=== PATIENT | female | born 2000 | race Caucasian/White ===

== ENCOUNTER 2018-10-17 12:56 | Emergency (ER) | payer OTHER ==
[2018-10-17] MEDS ORDERED: NS 1,000 ML IV ONE (14:08)
--- NOTE | 2018-10-17 14:12 | EDPHY ---
H & P Stated Complaint: abd pain, ESTRELLA, confusion, dizzy x 30 min. Time Seen by Provider: 10/17/18 13:32 HPI/ROS: CHIEF COMPLAINT: Syncope HISTORY OF PRESENT ILLNESS: 18-year-old female presents after a syncopal episode. Onset generalized abdominal cramping this morning. She walked to the bathroom, felt dizzy and then sat on the toilet. She then had a large amount of diarrhea, followed by diaphoresis, tunnel vision and increased dizziness. She laid down on the floor for while and felt better. When she stood back up, she began to feel dizzy again. Her friend assisted her in becoming supine. She continues to feel slightly dizzy when she stands up. Associated with a mild headache. History of prior similar symptoms multiple times. She has seen a neurologist and had an MRI of the brain previously. No prior cardiac workup. REVIEW OF SYSTEMS: complete 10 point ROS reviewed and is negative except for the noted elements in the HPI - Personal History LMP (Females 10-55): Extended Cycle BCP/Inj Current Tetanus Diphtheria and Acellular Pertussis (TDAP): Yes - Medical/Surgical History Hx Asthma: No Hx Chronic Respiratory Disease: No Hx Diabetes: No Hx Cardiac Disease: No Hx Renal Disease: No Hx Cirrhosis: No Hx Alcoholism: No Hx HIV/AIDS: No Hx Splenectomy or Spleen Trauma: No Other PMH: endometriosis, pcos, migraines, vocal cord disfunction - Social History Smoking Status: Never smoked - Physical Exam Exam: General Appearance: Alert, pleasant Eyes: Pupils equal and round, no conjunctival pallor ENT, Mouth: Mucous membranes moist Neck: Normal inspection Respiratory: Lungs are clear to auscultation Cardiovascular: Regular rate and rhythm Gastrointestinal: Abdomen is soft and nontender Neurological: A&O, nonfocal, normal gait Skin: Warm and dry Extremities: Normal inspection Psychiatric: Mood and affect normal Constitutional: Initial Vital Signs Temperature (C) 36.8 C 10/17/18 13:06 Heart Rate 82 10/17/18 13:06 Respiratory Rate 16 10/17/18 13:06 Blood Pressure 111/72 10/17/18 13:06 O2 Sat (%) 99 10/17/18 13:06 O2 Delivery Mode Room Air Allergies/Adverse Reactions: No Known Allergies Allergy (Verified 10/17/18 14:12) Medical Decision Making - Diagnostics EKG Interpretation: EKG interpreted by me reveals normal sinus rhythm, rate 68, no ST or T segment changes. Interpretation: Normal EKG ED Course/Re-evaluation: This pt presents after a near syncopal episode. Clinical history strongly supports vasovagal episode. Prior eval for similar sx by neurologist, including MRI brain unremarkable. No prior cardiac eval. security monitor reveals NSR throughout. EKG NSR, without ischemic changes. Labs unremarkable. IV NS 1 liter given, pt ambulated with a steady gait after IVF, no dizziness. Pt encouraged to f/u cardiology, given multiple prior similar episodes. Differential Diagnosis: includes though not limited to dysrhythmia, ACS, hypoglycemia, electrolyte abnormality, dehydration, vertigo, neurologic causes - Data Points Laboratory Results: Laboratory Results 10/17/18 13:25 10/17/18 13:25 Medications Given: Discontinued Medications Sodium Chloride (Ns) 1,000 mls @ 0 mls/hr IV EDNOW ONE; Wide Open PRN Reason: Protocol Stop: 10/17/18 14:09 Last Admin: 10/17/18 14:11 Dose: 1,000 mls Departure - Departure Disposition: Home, Routine, Self-Care Clinical Impression: Syncope Qualifiers: Syncope type: vasovagal syncope Qualified Code(s): R55 - Syncope and collapse Condition: Good Instructions: Syncope (ED) Referrals: Mainor Rascon MD [Medical Doctor] - As per Instructions Stand Alone Forms: Statement of Treatment
[2018-10-17 14:16] LABS: PLATELET COUNT 308 10^3/uL (150-400)
[2018-10-17 15:04] VITALS: BP 106/73
--- NOTE | 2018-10-17 15:24 | CPEKG ---
Test Reason : OPEN Blood Pressure : / mmHG Vent. Rate : 068 BPM Atrial Rate : 064 BPM P-R Int : 128 ms QRS Dur : 100 ms QT Int : 414 ms P-R-T Axes : -04 083 033 degrees QTc Int : 441 ms Sinus rhythm Confirmed by Wanda Bains ([id number]) on 10/17/2018 3:23:49 PM Referred By: Wanda Bains Confirmed By:Wanda Bains
== END 2018-10-17 15:02 | disposition home or self-care (01) ==
DX: R55 Syncope and collapse (principal); E86.9 Volume depletion, unspecified

== ENCOUNTER 2018-10-23 20:27 | Emergency (ER) | payer OTHER ==
[2018-10-23] MEDS ORDERED: NS 1,000 ML IV ONE (20:58)
[2018-10-23] MEDS ORDERED: METOCLOPRAMIDE 10 MG/2 ML VIAL IVP ONE (22:13)
[2018-10-23] MEDS ORDERED: KETOROLAC 30 MG/1 ML SDV IVP ONE (22:13)
--- NOTE | 2018-10-23 23:15 | EDPHY ---
General Time Seen by Provider: 10/23/18 20:56 Narrative: CLINICAL IMPRESSION: Syncopal episode, migraine variant headache ASSESSMENT/PLAN: 18-year-old female with past medical history of migraines, followed by Neurology with reported normal lab work and MRIs recently presents to the emergency department after feeling lightheaded and dizzy at home and subsequently experiencing a syncopal episode. EKG is reassuring with no evidence of acute ST or T-wave abnormality, Brugada, or WPW. This was reviewed with Dr. Douglas. Patient has no complaints of chest pain or shortness of breath. Lab work reassuring. Vitals remained stable. She has a nonfocal neurological exam. She received IV analgesics with near complete resolution of headache and dizziness. She was seen and examined by Dr. Douglas as well. She has an appointment in 3 days with Cardiology and I also encouraged repeat evaluation with Neurology. We do not feel the patient requires emergent CT imaging tonight. She was advised to follow up with her neurologist this week as well. School note given to excuse from finals tomorrow. Warning signs for return to ED discussed with patient and parents and in DC DIFFERENTIAL DX: Differential diagnosis for headache includes but not limited to subarachnoid hemorrhage, migraine headache, migraine variant headache, tension headache and infectious causes such as meningitis, pharyngitis and sinusitis. ED PROCEDURES: See lab and/or imaging results below ED COURSE: 11:20 P.M. case discussed with Dr. Douglas who will also see the patient. After analgesics, patient reports headache is feeling much better. Vitals remained stable. CHIEF COMPLAINT: Syncopal episode, neck pain HPI: 18-year-old female with past medical history of migraine headaches, followed by Dr. Heath with Neurology, presents to the emergency department after she apparently had a syncopal episode at home while cooking dinner tonight. Patient was alone and no one witnessed the incident. She reports she was cooking, felt lightheaded as though she may pass out and then was on the ground. She hit her neck on the edge of a chair. She did not hit her head. She initially did not have a headache but reports to me that she does have a headache. She has been seeing Neurology for migraines which are described as sensations of dizziness, lightheadedness, vision changes. Since Monday of last week she has had more pronounced symptoms as stated above associated with an episode of inability to talk and arm and leg twitching. She has not been ill recently, no fever or chills. She has had normal MRI scans with her neurologist whom she last saw in August. She does not yet have an upcoming appointment. She has been taking sumatriptan but was instructed to only take this twice monthly and has already taken it once this month. She does not feel this is helping her symptoms significantly. She is also taking Cymbalta prophylactically. She does report that the dizziness seems to have started since starting Cymbalta. She was seen at the [facility] on Monday and started on a dexamethasone taper. She reports no nausea, vomiting, weakness or numbness to the arms or legs but states she was having trouble walking today after her syncopal episode. PAST MEDICAL HISTORY: Migraine See nurse/triage notes for additional history if applicable Pertinent Past Surgical History: None reported Family History: Family history of migraines Social History: Nonsmoker REVIEW OF SYSTEMS: All other systems negative Constitutional: No fever, no chills, appetite change. Cardiovascular: No chest pain, no palpitations. Respiratory: No cough, no shortness of breath. Gastrointestinal: No abdominal pain, no vomiting, diarrhea. Musculoskeletal: No back pain, joint swelling, joint pain, myalgias. Skin: No rashes, color change. Neurological: Positive for headache, dizziness, weakness. PHYSICAL EXAM: General Appearance: Alert, oriented, appropriate, cooperative, NAD, well hydrated, non-toxic appearing, VSS, no hypoxia. HEENT: TMs are clear bilaterally no perforation or FB, no injection, no evidence of serous or mucopurulent otitis. Oropharynx clear is no erythema or exudates, no tonsillar hypertrophy or asymmetry. Dentition without abnormality. Eyes: PERRLA, no acute vision change, nystagmus, swelling, discharge, pain. She does have mild photosensitivity. Conjunctiva pink, no pallor or injection Neck: Supple, nontender, no lymphadenopathy, midline and paravertebral pain to cervical spine, no obvious bruising, FROM, no meningismus. Respiratory: There are no retractions, lungs are clear to auscultation. No chest wall pain or rib pain to palpation. Cardiac: Regular rate and rhythm, no murmurs or gallops. Neurological: Alert and oriented x 3, CN 2-12 grossly intact, no limb ataxia, patellar DTRs 2+ bilaterally, normal sensation and strength Skin: Warm, dry, no rashes, no nodules on palpation. Musculoskeletal: Extremities are symmetrical, full range of motion, no tenderness, deformity, swelling, or erythema. Psychiatric: Patient is oriented X 3 MEDICAL DECISION MAKING: Secondary supervising physician at time of evaluation was Dr. Douglas who also saw and examined patient . Diagnosis: Migraine variant headache, syncopal episode. New, requires workup Summary: See Assessment and Plan for summary of ED visit Clinical lab tests: ordered / reviewed. Independent visualization of images, tracing, or specimens: Yes. Decision to obtain medical records or history from someone other than the patient: Patient's parents Review / Summarize previous medical records: Reviewed recent ED record Discussed patient with another provider: Dr. Douglas Patient Progress: Improved, stable for discharge. - Diagnostics Imaging Results: Imaging Impressions Cervical Spine X-Ray 10/23/18 22:13 Impression: 1. No definite cervical compression fracture or degenerative arthropathy. 2. If there is persistent pain or neurological deficit, consider additional MRI imaging if clinically indicated. - History Smoking Status: Never smoked - Objective Vital Signs: Initial Vital Signs Temperature (C) 37.2 C 10/23/18 20:30 Heart Rate 82 10/23/18 20:30 Respiratory Rate 18 10/23/18 20:30 Blood Pressure 124/86 H 10/23/18 20:30 O2 Sat (%) 96 10/23/18 20:30 O2 Delivery Mode Room Air Allergies/Adverse Reactions: No Known Allergies Allergy (Verified 10/23/18 20:29) Home Medications: Medication Instructions Recorded NK [No Known Home Meds] 10/23/18 Laboratory Results: Laboratory Results 10/23/18 20:45 10/23/18 10/23/18 10/23/18 21:50 21:50 20:45 Sodium 138 mEq/L mEq/L (135-145) Potassium 3.5 mEq/L mEq/L (3.5-5.2) Chloride 103 mEq/L mEq/L (97-110) Carbon Dioxide 23 mEq/l mEq/l (22-31) Anion Gap 12 mEq/L mEq/L (6-14) BUN 14 mg/dL mg/dL (7-23) Creatinine 0.7 mg/dL mg/dL (0.6-1.0) Estimated GFR > 60 Glucose 86 mg/dL mg/dL (70-100) Calcium 9.6 mg/dL mg/dL (8.5-10.4) Urine Color YELLOW Urine Appearance CLEAR Urine pH 5.0 (5.0-7.5) Ur Specific [place] 1.018 (1.002-1.030) Urine Protein NEGATIVE (NEGATIVE) Urine Ketones TRACE H (NEGATIVE) Urine Blood NEGATIVE (NEGATIVE) Urine Nitrate NEGATIVE (NEGATIVE) Urine Bilirubin NEGATIVE (NEGATIVE) Urine Urobilinogen NEGATIVE EU EU (0.2-1.0) Ur Leukocyte Esterase NEGATIVE (NEGATIVE) Urine Glucose NEGATIVE (NEGATIVE) Urine Test NEGATIVE Medications Given: Discontinued Medications Diphenhydramine HCl (Benadryl Injection) 50 mg IVP EDNOW ONE Stop: 10/23/18 22:14 Last Admin: 10/23/18 22:30 Dose: 50 mg Sodium Chloride (Ns) 1,000 mls @ 0 mls/hr IV EDNOW ONE; Wide Open PRN Reason: Protocol Stop: 10/23/18 20:59 Last Admin: 10/23/18 20:59 Dose: 1,000 mls Ketorolac Tromethamine (Toradol) 30 mg IVP EDNOW ONE Stop: 10/23/18 22:14 Last Admin: 10/23/18 22:28 Dose: 30 mg Metoclopramide HCl (Reglan Injection) 10 mg IVP EDNOW ONE Stop: 10/23/18 22:14 Last Admin: 10/23/18 22:29 Dose: 10 mg Departure - Departure Disposition: Home, Routine, Self-Care Clinical Impression: Migraine Qualifiers: Migraine type: unspecified Status migrainosus presence: without status migrainosus Intractability: not intractable Qualified Code(s): G43.909 - Migraine, unspecified, not intractable, without status migrainosus Condition: Fair Instructions: Migraine Headache (ED) Additional Instructions: DISCHARGE INSTRUCTIONS FROM YOUR DOCTOR Thank you for visiting our emergency department today. You were treated by a physician construction assistant today and your case was reviewed with our ED Attending physician. Please keep in mind that discharge from the emergency department does not mean that there is nothing wrong - it simply means that we have not identified an emergency condition that requires further evaluation or treatment in the hospital. You should always plan to follow up with primary care for re- evaluation of your condition in the next 2-3 days. If you have been referred to a specialist, please call as soon as possible (today or tomorrow) to schedule your follow up appointment at the appropriate time. EKG AND LAB WORK IN THE EMERGENCY DEPARTMENT TONIGHT ARE REASSURING. X-RAY OF THE NECK IS NORMAL WITH NO EVIDENCE OF FRACTURES. HE RECEIVED MEDICATIONS FOR HER HEADACHE WITH IMPROVEMENT IN SYMPTOMS. WE RECOMMEND FOLLOWING UP WITH HER NEUROLOGIST THIS WEEK, PLEASE CONTACT HIM AND LET THEM KNOW YOU WERE IN THE EMERGENCY DEPARTMENT. KEEP HER APPOINTMENT WITH CARDIOLOGY THIS WEEK. RETURN TO THE EMERGENCY DEPARTMENT IMMEDIATELY FOR SEVERE OR WORSENING HEADACHE, WORST HEADACHE OF HER LIFE, THUNDERCLAP OR SUDDEN ONSET HEADACHE, SEIZURE ACTIVITY, RECURRENT SYNCOPAL EPISODES, ALTERED MENTAL STATUS, OR ANY OTHER CONCERNS. People present with illnesses and injuries in different ways, and it is always possible that we have missed something. You may always return for re-evaluation if symptoms worsen or if they are not improving or if you develop new/different symptoms. Again, thank you for choosing our emergency department. We hope that you feel better. Referrals: HARSHAL RAMIREZ [Primary Care Provider] - 1-2 days without fail Stand Alone Forms: School Excuse
[2018-10-24 00:10] VITALS: BP 100/58
--- NOTE | 2018-11-02 07:23 | CPEKG ---
Test Reason : OPEN Blood Pressure : / mmHG Vent. Rate : 067 BPM Atrial Rate : 070 BPM P-R Int : 124 ms QRS Dur : 101 ms QT Int : 418 ms P-R-T Axes : -30 080 019 degrees QTc Int : 442 ms Sinus rhythm Confirmed by Fracisco Douglas ([id number]) on 11/02/2018 7:22:41 AM Referred By: PHYSICIAN ED Confirmed By:Fracisco Douglas
== END 2018-10-24 00:09 | disposition home or self-care (01) ==
DX: G43.909 Migraine, unspecified, not intractable, without status migrainosus (principal); E86.9 Volume depletion, unspecified
CPT/HCPCS: 96374; J1200; J1885; J2765

== ENCOUNTER 2018-10-25 13:19 | Observation (INO) | payer OTHER ==
[2018-10-25 13:52] LABS: PLATELET COUNT 299 10^3/uL (150-400)
[2018-10-25] MEDS ORDERED: D50W 25 GM/50 ML SYR IVP ONE (14:19)
[2018-10-25] MEDS ORDERED: NS 1,000 ML IV ONE (14:28)
--- NOTE | 2018-10-25 14:39 | EDPHY ---
H & P Time Seen by Provider: 10/25/18 13:55 HPI/ROS: HPI Passed out. Possible seizure. 18-year-old female by ambulance. This patient has been seen in our emergency department twice recently. Once on October 17 and most recently on October 23 for syncopal events. Her basic chemistry CBC negative during her evaluation previously. She was discharged to home. She is scheduled for cardiology follow-up tomorrow with [facility]. Today at approximately 1:00 p.m. She was eating lunch with her brother. She states that she started feeling a chest pain mid substernal chest which she describes as sharp and aching and similar to a pain which she has had in the past over the last couple of weeks with associated shortness of breath. She stood up and then reports that she passed out. Her brother who is with her states that he witnessed convulsive like activity. On my evaluation at this time she denies any chest pain currently, no shortness of breath. She does not have a headache. No neck pain. No loss of sensation or weakness in her extremities. ROS: Constitutional: No fever, no chills. No weakness. Eyes: No discharge. No changes in vision. ENT: No sore throat. No nasal congestion or rhinorrhea. Respiratory: No cough. No shortness of breath. Cardiac: No chest pain, no palpitations. Gastrointestinal: No abdominal pain, no vomiting, no diarrhea. Genitourinary: No hematuria. No dysuria or increased frequency with urination. Musculoskeletal: No back pain. No neck pain. No myalgias or arthralgias. Skin: No rashes. Neurological: No headache. No focal weakness or altered sensation. Past medical history: Recent visits to the emergency department for syncopal episodes as noted above, endometriosis, PCOS, migraine headaches, vocal cord dysfunction. Social history: Nonsmoker. Here with mother and father currently. No alcohol. Physical Exam: General Appearance: Alert, no distress. This patient is responding to questions appropriately and in full sentences. This patient appears well- hydrated and well-nourished. Head: Normocephalic atraumatic. Face: Facial bones are stable on palpation. Eyes: Pupils equal and round and reactive to light, no pallor or injection. No lid erythema or edema. ENT, Mouth: Mucous membranes moist. Dentition is intact. No malocclusion of the jaw. No tongue lacerations or abrasions. Pharynx is clear. The bilateral nasal canals are clear. No septal hematoma. Respiratory: There are no retractions, lungs are clear to auscultation with good air movement bilaterally. Chest wall is stable to AP and lateral palpation. Cardiovascular: Regular rate and rhythm. No murmur. Gastrointestinal: Abdomen is soft and nontender, no masses, bowel sounds normal. Neurological: Motor sensory function is intact. Cranial nerves are normal. Cerebellar function intact. Skin: Warm and dry, no rashes. No lacerations, abrasions or contusions. Musculoskeletal: Neck is supple and nontender. The trachea is midline. No midline cervical, thoracic, lumbar or sacral tenderness on palpation. No flank tenderness on palpation. Extremities are symmetrical, full range of motion. All joints in the bilateral upper and bilateral lower extremities range without pain or impingement. No tenderness on palpation of the long bones in the bilateral upper and bilateral lower extremities. Psychiatric: No agitation. No depression. Database: EKG: EKG time is 1:42 p.m.; EKG shows a narrow complex normal sinus rhythm with a ventricular rate of 70. The MO, QRS, QT intervals are within normal limits. There are no ST-T wave changes indicative of ischemic or injury pattern. No evidence of right heart strain. No evidence of WPW, Brugada syndrome, hypertrophic cardiomyopathy. Interpreted by me. Imaging: Procedures: Emergency department course: Triage vital signs reviewed and are normal. IV was placed. She was started on IV normal saline with 500 cc to 1 L to be given over the next hour. Basic metabolic panel indicated a serum glucose of 53. She was given an amp of D50. She will be given some juice and crackers. I do not believe she had a seizure. She has no tongue lacerations or contusions. She is not acidotic. 3:40 p.m., the patient was re-evaluated, she is resting comfortably at this time. Her vital signs have remained stable while in the emergency department. Repeat neurologic Assessment is nonfocal. Her workup has been reassuring. Results of her emergency department workup have been discussed with her and her parents. Plan for admission reviewed. All of their questions were answered. Hospitalist paged. 3:45 p.m., spoke with on-call hospitalist Dr. Danya Siu. Case discussed in detail. She will see this patient in the emergency department now. She accepts this patient for admission to telemetry. She will obtain an echocardiogram and cardiology consultation. The patient's remaining emergency department course under my care has been uneventful. The patient was admitted in stable condition to telemetry. Differential Diagnosis: The differential diagnosis on this patient includes but is not limited to vasovagal syncope, arrhythmia. Pulmonary embolism, seizure, acute coronary syndrome, CVA unlikely. This represents a partial list of diagnoses considered. These considerations are based on history, physical exam, past history, reassessment and diagnostic testing. Smoking Status: Never smoked Constitutional: Initial Vital Signs Temperature (C) 37.1 C 10/25/18 13:24 Heart Rate 70 10/25/18 13:24 Respiratory Rate 16 10/25/18 13:24 Blood Pressure 123/84 H 10/25/18 13:24 O2 Sat (%) 100 10/25/18 13:24 O2 Delivery Mode Room Air Allergies/Adverse Reactions: No Known Allergies Allergy (Verified 10/25/18 13:23) Home Medications: Medication Instructions Recorded Nilembalta 10/25/18 Medical Decision Making - Data Points Laboratory Results: Laboratory Results 10/25/18 13:35 10/25/18 13:35 10/25/18 10/25/18 10/25/18 14:43 13:35 13:35 WBC 8.88 10^3/uL 10^3/uL (3.80-9.50) RBC 4.57 10^6/uL 10^6/uL (4.18-5.33) Hgb 13.7 g/dL g/dL (12.6-16.3) Hct 39.8 % % (38.0-47.0) MCV 87.1 fL fL (81.5-99.8) MCH 30.0 pg pg (27.9-34.1) MCHC 34.4 g/dL g/dL (32.4-36.7) RDW 12.7 % % (11.5-15.2) Plt Count 299 10^3/uL 10^3/uL (150-400) MPV 9.4 fL fL (8.7-11.7) Neut % (Auto) 68.6 % % (39.3-74.2) Lymph % (Auto) 23.8 % % (15.0-45.0) [place] % (Auto) 6.5 % % (4.5-13.0) Eos % (Auto) 0.7 % % (0.6-7.6) Baso % (Auto) 0.2 % L % (0.3-1.7) Nucleat RBC Rel Count 0.0 % % (0.0-0.2) Absolute Neuts (auto) 6.09 10^3/uL 10^3/uL (1.70-6.50) Absolute Lymphs (auto) 2.11 10^3/uL 10^3/uL (1.00-3.00) Absolute Monos (auto) 0.58 10^3/uL 10^3/uL (0.30-0.80) Absolute Eos (auto) 0.06 10^3/uL 10^3/uL (0.03-0.40) Absolute Basos (auto) 0.02 10^3/uL 10^3/uL (0.02-0.10) Absolute Nucleated RBC 0.00 10^3/uL 10^3/uL (0-0.01) Immature Gran % 0.2 % % (0.0-1.1) Immature Gran # 0.02 10^3/uL 10^3/uL (0.00-0.10) D-Dimer Sodium 141 mEq/L mEq/L (135-145) Potassium 3.5 mEq/L mEq/L (3.5-5.2) Chloride 106 mEq/L mEq/L (97-110) Carbon Dioxide 24 mEq/l mEq/l (22-31) Anion Gap 11 mEq/L mEq/L (6-14) BUN 10 mg/dL mg/dL (7-23) Creatinine 0.8 mg/dL mg/dL (0.6-1.0) Estimated GFR > 60 Glucose 53 mg/dL L mg/dL (70-100) Calcium 9.7 mg/dL mg/dL (8.5-10.4) POC Troponin I 0.00 ng/mL ng/mL (0.00-0.08) Beta HCG, Qual 10/25/18 10/25/18 13:33 11:45 WBC RBC Hgb Hct MCV MCH MCHC RDW Plt Count MPV Neut % (Auto) Lymph % (Auto) [place] % (Auto) Eos % (Auto) Baso % (Auto) Nucleat RBC Rel Count Absolute Neuts (auto) Absolute Lymphs (auto) Absolute Monos (auto) Absolute Eos (auto) Absolute Basos (auto) Absolute Nucleated RBC Immature Gran % Immature Gran # D-Dimer 0.27 ug/mLFEU ug/mLFEU (0.00-0.50) Sodium Potassium Chloride Carbon Dioxide Anion Gap BUN Creatinine Estimated GFR Glucose Calcium POC Troponin I Beta HCG, Qual NEGATIVE Medications Given: Discontinued Medications Dextrose (Dextrose 50% Syringe) 25 gm IVP EDNOW ONE Stop: 10/25/18 14:20 Last Admin: 10/25/18 14:32 Dose: 25 gm Sodium Chloride (Ns) 1,000 mls @ 0 mls/hr IV EDNOW ONE; Wide Open PRN Reason: Protocol Stop: 10/25/18 14:29 Last Admin: 10/25/18 14:32 Dose: 1,000 mls Point of Care Test Results: Chemistry 10/25/18 14:43 POC Troponin I 0.00 ng/mL ng/mL (0.00-0.08) Departure - Departure Disposition: [facility] Inpatient Acute Clinical Impression: Syncope Referrals: HARSHAL RAMIREZ [Primary Care Provider] - As per Instructions
[2018-10-25] MEDS ORDERED: ONDANSETRON DISINTEGRATING 4 MG TAB PO PRN (16:40)
[2018-10-25] MEDS ORDERED: HYDROmorphONE/DILAUDID 1 MG/ML INJ IVP PRN (16:40)
[2018-10-25] MEDS ORDERED: ONDANSETRON 4 MG/2 ML VIAL IVP PRN (16:40)
[2018-10-25] MEDS ORDERED: PROMETHAZINE HCL 25 MG/ML INJ IVP PRN (16:40)
[2018-10-25] MEDS ORDERED: oxyCODONE IR 5 MG TAB PO PRN (16:40)
[2018-10-25] MEDS ORDERED: HYDROCODONE/APAP 5/325 TAB PO PRN (16:40)
[2018-10-25] MEDS ORDERED: D50W 25 GM/50 ML SYR IVP PRN (16:45)
--- NOTE | 2018-10-25 16:55 | PDGENHP ---
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 This is actually her 3rd ER visit for similar symptoms with her first episode on 10/17. Her first episode was preceded by vomiting and fever the night before, and then she describes an episode of tremors, difficulty speaking with what sounds like expressive aphasia and headache. She notes that she went to sit on the toilet to recover when the dizziness began and does not remember defecating but when she again became aware of her surroundings found that she had diarrhea. She was seen in the ER and diagnosed with likely vasovagal episode, recommended to f/u with cardiology--which was scheduled for tomorrow. On 10/23 she had another episode, this time occurred while cooking at home. She notes that she felt dizzy and weak, developed a headache, and was walking to her room when she lost consciousness and woke up on the floor--her roommate was home but did not witness the event. She felt a bit confused when she awoke for a couple minutes, no loss of bowel or bladder control. She was seen again in the ER and was diagnosed with migraine, recommended she follow up with her neurologist. Today, she was out eating with her brother and developed chest pain. She notes she has had similar chest pain on and off for years that was never clearly diagnosed as anything in particular. She got up to go to the bathroom to take her bra off in case it was contributing to her chest pain, when she developed dizziness and double vision. Her brother witnessed her grab her chest, and then grab the devine and lower herself to the ground. She seemed to then lose consciousness, with her eyes rolled back in her head, and proceeded to shake side to side, not responding to him and intermittently saying his name. This lasted about 2 minutes and when she awoke she felt confused for several minutes and had difficulty walking, was still dizzy and had headache. She felt essentially back to normal by the time the ambulance arrived, and continues to feel fine now. She has had a hx of recurrent dizziness in the past with near syncope that was felt to be due to migraine. In terms of her migraine hx, she states she has had headaches essentially every day since she was a child, recently diagnosed as migraine, and improved somewhat since her neurologist started on cymbalta. History Information - Allergies/Home Medication List Allergies/Adverse Reactions: No Known Allergies Allergy (Verified 10/25/18 13:23) Home Medications: DULoxetine [Cymbalta 60 MG (*)] 60 mg PO DAILY 10/25/18 [Last Taken 10/24/18] Norethindrone [Norethindrone] 1 ea PO DAILY 10/25/18 [Last Taken 10/25/18] I have personally reviewed and updated: family history, medical history, social history, surgical history - Past Medical History asthma (exercise induced), migraines Additional medical history: periodic fever with apthous stomatitis, pharyngitis and adenitis syndrome from age [age] - Surgical History Reports: no pertinent surgical hx - Family History Positive for: diabetes type II (paternal GM), CAD (various uncles on both sides) - Social History Smoking Status: Never smoked Alcohol Use: Occasionally Drug Use: None Additional social history: Gus at [employer], majors in [employer] Review of Systems Review of Systems: ROS: 10pt was reviewed & negative except for what was stated in HPI & below Physical Exam Physical Exam: Temp Pulse Resp BP Pulse Ox 37.1 C 70 16 111/71 100 10/25/18 13:24 10/25/18 15:03 10/25/18 15:03 10/25/18 15:03 10/25/18 15:03 Constitutional: no apparent distress, appears nourished Eyes: PERRL, anicteric sclera Ears, Nose, Mouth, Throat: moist mucous membranes, hearing normal Cardiovascular: regular rate and rhythym, no murmur, rub, or gallop, No edema Respiratory: no respiratory distress, no rales or rhonchi, clear to auscultation Gastrointestinal: normoactive bowel sounds, soft, non-tender abdomen Genitourinary: no bladder tenderness Skin: warm, normal color Musculoskeletal: full muscle strength Neurologic: AAOx3 Psychiatric: interacting appropriately, not anxious, not encephalopathic Lab Data & Imaging Review 10/25/18 13:35 10/25/18 13:35 WBC 8.88 10^3/uL (3.80-9.50) 10/25/18 13:35 RBC 4.57 10^6/uL (4.18-5.33) 10/25/18 13:35 Hgb 13.7 g/dL (12.6-16.3) 10/25/18 13:35 Hct 39.8 % (38.0-47.0) 10/25/18 13:35 MCV 87.1 fL (81.5-99.8) 10/25/18 13:35 MCH 30.0 pg (27.9-34.1) 10/25/18 13:35 MCHC 34.4 g/dL (32.4-36.7) 10/25/18 13:35 RDW 12.7 % (11.5-15.2) 10/25/18 13:35 Plt Count 299 10^3/uL (150-400) 10/25/18 13:35 MPV 9.4 fL (8.7-11.7) 10/25/18 13:35 Neut % (Auto) 68.6 % (39.3-74.2) 10/25/18 13:35 Lymph % (Auto) 23.8 % (15.0-45.0) 10/25/18 13:35 [place] % (Auto) 6.5 % (4.5-13.0) 10/25/18 13:35 Eos % (Auto) 0.7 % (0.6-7.6) 10/25/18 13:35 Baso % (Auto) 0.2 % (0.3-1.7) L 10/25/18 13:35 Nucleat RBC Rel Count 0.0 % (0.0-0.2) 10/25/18 13:35 Absolute Neuts (auto) 6.09 10^3/uL (1.70-6.50) 10/25/18 13:35 Absolute Lymphs (auto) 2.11 10^3/uL (1.00-3.00) 10/25/18 13:35 Absolute Monos (auto) 0.58 10^3/uL (0.30-0.80) 10/25/18 13:35 Absolute Eos (auto) 0.06 10^3/uL (0.03-0.40) 10/25/18 13:35 Absolute Basos (auto) 0.02 10^3/uL (0.02-0.10) 10/25/18 13:35 Absolute Nucleated RBC 0.00 10^3/uL (0-0.01) 10/25/18 13:35 Immature Gran % 0.2 % (0.0-1.1) 10/25/18 13:35 Immature Gran # 0.02 10^3/uL (0.00-0.10) 10/25/18 13:35 D-Dimer 0.27 ug/mLFEU (0.00-0.50) 10/25/18 13:33 Sodium 141 mEq/L (135-145) 10/25/18 13:35 Potassium 3.5 mEq/L (3.5-5.2) 10/25/18 13:35 Chloride 106 mEq/L (97-110) 10/25/18 13:35 Carbon Dioxide 24 mEq/l (22-31) 10/25/18 13:35 Anion Gap 11 mEq/L (6-14) 10/25/18 13:35 BUN 10 mg/dL (7-23) 10/25/18 13:35 Creatinine 0.8 mg/dL (0.6-1.0) 10/25/18 13:35 Estimated GFR > 60 10/25/18 13:35 Glucose 53 mg/dL (70-100) L 10/25/18 13:35 Calcium 9.7 mg/dL (8.5-10.4) 10/25/18 13:35 POC Troponin I 0.00 ng/mL (0.00-0.08) 10/25/18 14:43 Beta HCG, Qual NEGATIVE 10/25/18 11:45 Visualized and Interpreted imaging results: Yes Interpretation: C spine xray from 10/23 normal Visualized and Interpreted EKG results: Yes EKG Interpretation: Positive for: normal sinsus rhythm Assessment & Plan Assessment: Syncope (Acute) 18 yo F with PMH of migraine presenting with syncope # syncope: with 3 ER visits in the past week and sxs that sound primarily like vasovagal syncope but also some neurologic symptoms including difficulty walking , aphasia and tremors raising concern for primary neuro issue like complicated migraine/atypical seizure presentation. Will monitor on tele, serial trops, echo in am. cardiology and neurology consults requested for am. If no etiology found, likely warrants discharge with nurse monitoring. Was hypoglycemic on arrival and query intermittent hypoglycemia causing her sxs, though no reason for that. Monitoring glucose. # migraines: with hx of atypical migraine in the past with sxs of near syncope thought to be due to that but now with increasing sxs as above, followed by a neurologist in [place], apparently has had brain MRI in the past but unclear how long ago. 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 Old records reviewed and summarized as above. Care plan reviewed with ER doctor, further hx obtained from patients family present at bedside.
--- NOTE | 2018-10-25 20:58 | CPEKG ---
Test Reason : OPEN Blood Pressure : / mmHG Vent. Rate : 070 BPM Atrial Rate : 072 BPM P-R Int : 122 ms QRS Dur : 102 ms QT Int : 393 ms P-R-T Axes : 015 081 025 degrees QTc Int : 425 ms Sinus rhythm Confirmed by Kristian Russell ([id number]) on 10/25/2018 8:57:33 PM Referred By: PHYSICIAN ED Confirmed By:Kristian Russell
[2018-10-25] MEDS: ACETAMINOPHEN 325 MG TAB PO PRN (22:39)
[2018-10-26] MEDS: DULoxetine 60 MG CAP PO SCH (08:40)
[2018-10-26] MEDS: ACETAMINOPHEN 325 MG TAB PO PRN ×3 (08:40→20:30)
[2018-10-26] MEDS: NORETHINDRONE PO SCH (08:41)
--- NOTE | 2018-10-26 09:52 | NEUROPROG ---
Assessment: [id number] - Neurology Consult: - CC: Dr. Siu consulted neurology for syncope vs seizure. Results placed in EMR for her review. - HPI: 10/26/18: Pt with PMHx of migraines (followed by neurologist in [place], [place] for this) reported since 10/17/18 she had had 3 passing out spells (last on leading to admission at [facility]). The last episode of passing out was reported to be associated with some convulsive symptoms. Her first episode was preceded by N/V and fever. She also reported a headache with some tremors speech issues. Prior passing out spells were felt to be vasovagal syncope. Pt reported on 10/23/18 she developed a headache that made her feel dizzy and weak and she then passed out. She does have a history of recurrent dizziness in the past with near syncope felt to be due to migraine. She did get frequent migraines so saw a neurologist who placed her on Cymbalta which has somewhat improved her migraine symptoms. Her neurologic exam on 10/26/18 was normal. I felt she was likely having migraines with associated vasovagal syncope. Treatment is getting the migraines under good control with her outpatient neurologist (she has a f/u visit with him on Monday). I will evaluate for any seizure focus with brain MRI wwo and EEG but if these tests are unremarkable then I would recommend her otpt neurologist attempt better migraine control. I agree with plan for cardiology to evaluate for cardiac causes of syncope. - PMHx: asthma, migraines, childhood autoimmune condition - SHx: no tobacco FHx: DM2, CAD - ROS: Pt denied acute fever, total vision loss, active severe chest pain, respiratory failure, total body severe rash, total bowel/bladder incontinence, psychosis, active seizures, or active bleeding - O: VS reviewed General: Alert Eyes: Fundoscopic exam not able to visualize optic disks CV: Heart RRR, no murmur, no carotid bruit Lungs: Clear to auscultation bilaterally, no rhonchi or rales Neuro: - Mental: . Oriented x person/place/date . concentration appears normal . speech fluency/comprehension normal . memory appears normal . fund of knowledge appear intact - Cranial Nerves: . II: PERRL, VFFTC . III/IV/: EOMI, no nystagmus, normal smooth pursuits, no Ptosis . V: facial sensation intact to LT . VII: face symmetric to eye closure and smile . VIII: hearing intact to conversation . IX/X: uvula raises symmetrically . XI: SCM 5/5 B/L strength . XII: tongue protrudes midline w/nl strength - Motor: . Tone: normal tone in all 4 extremity . 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 (I personally visualized the images on 10/26/18) - Assessment: 1. Migraines 2. Probable Vasovagal Syncope - Plan: - Agree with cardiology evaluation to exclude cardiac causes of syncope - Agree with Cymbalta for migraines - Seizure precautions and no driving until she sees her outpatient neurologist - Brain MRI wwo - EEG - If MRI/EEG unremarkable then pt can discharge from neurology perspective and f /u with her outpatient neurologist to review this hospitalization (Pt has a scheduled appointment on Monday with her neurologist) Objective: Vital Signs Temp Pulse Resp BP Pulse Ox 36.6 C 70 18 92/55 L 96 10/26/18 08:00 10/26/18 08:00 10/26/18 08:00 10/26/18 08:00 10/26/18 08:00 10/25/18 10/26/18 10/27/18 05:59 05:59 05:59 Intake Total 300 Balance 300 Allergies/Adverse Reactions: No Known Allergies Allergy (Verified 10/25/18 13:23)
[2018-10-26] MEDS ORDERED: GADOBUTROL 10 ML VIAL IVP ONE ×2 (10:17→10:27)
--- NOTE | 2018-10-26 13:13 | ECHO ---
[email or web address] [address] [address] Main: [phone] Echocardiography Examination Transthoracic Name: LEW BARRAZA MR#: [id number] Study Date: 10/26/2018 Study Time: 08:53 AM Date of : 2000 Age: 18 year(s) Height: 162.6 cm (64 in.) Weight: 56.7 kg (125 lb.) BSA: 1.6 m2 Gender: Female Examination: Echo Contrast: Image Quality: Adequate Rhythm: Normal sinus rhythm Heart Rate: 59 bpm BP: 92 mmHg/55 mmHg Indication: Cardiac: syncope Procedure Staff Referring Physician: [employer]oples[employer] Programmer: Loretta Vann [facility] Reading Physician: Josh Kimball MD Requesting Provider: Ordering Physician: Danya Siu Indication: Cardiac: syncope Measurements Chambers AV/MV Label Value Normal Value Label Value Normal Value LVOT Vmax 0.96 m/s (0.7m/s - 1.1m/s) AV PGmax 5 mmHg LVOTd 1.8 cm (1.8cm - 2cm) AV Vmax 1.15 m/s LVDd, 2D 4.4 cm (3.9cm - 5.3cm) PARKER (Vmax) 2.1 cm2 LVDs, 2D 2.9 cm (2.1cm - 4cm) MV E Vmax 0.73 m/s IVSd, 2D 0.6 cm (0.6cm - 1.1cm) MV A Vmax 0.36 m/s LVPWd, 2D 0.8 cm MV E/A 2.03 LVEF, BP 71 % (55% - 70%) MV E/E' lateral 4.3 LVEF, 2D 63 % (54% - 74%) MV E/E' septal 5.6 (2.4 - 2.4) RVDd, 2D 3.2 cm (1.9cm - 3.8cm) MV DT 169 ms TAPSE 2 cm MV E' septal 0.13 m/s LADs, 2D 3.3 cm (2.7cm - 3.8cm) MV E' lateral 0.17 m/s Additional Vessels MV E/E' mean 4.87 Label Value Normal Value MV E' mean 0.15 m/s AoAsc 2.2 cm TV/PV AoRoot, 2D 2.5 cm (1.4cm - 2.6cm) Label Value Normal Value RA Pressure 5 mmHg RVSP 19 mmHg TR Pmax 14 mmHg TR Vmax 1.86 m/s Patient: LEW BARRAZA Study Date: 10/26/2018 Page 1 of 3 08:53 AM PV PGmax 2 mmHg PV Vmax, Caliper 0.67 m/s (0.6m/s - 0.9m/s) Conclusions (1) Left ventricular systolic ejection fraction was normal (65-70%) - no LVH (2) Normal RV size and function (3) Normal atrial dimensions (4) Grossly normal mitral valve (5) Trileaflet aortic valve without sclerosis or insufficiency (6) Grossly normal tricuspid valve - RVSP was within normal limits (7) Normal ascending aortic dimensions (8) No pericardial effusion Findings Left Ventricle: Left ventricle is normal in size. Normal global systolic left ventricular function. EF evaluated by EF (biplane Bess's). The ejection fraction, measured by Simpsons method, is 71 %. EF range is estimated at 65 % - 70 %. Left ventricle wall thickness is normal. There are no regional wall motion abnormalities. Left ventricular diastolic function parameters are normal. IVS: The septum is intact. Right Ventricle: Normal size right ventricle. Right ventricular systolic function is normal. Left Atrium: The left atrium is normal in size. IAS: Normal appearing atrial septum. Right Atrium: The right atrium is normal in size. Mitral Valve: Mitral valve appears structurally normal. No mitral regurgitation. No mitral valve stenosis. Aortic Valve: The aortic valve is structurally normal and trileaflet. No aortic valve regurgitation. There is no aortic stenosis. Tricuspid Valve: Tricuspid valve leaflets are normal in appearance and function. Trivial tricuspid regurgitation. No tricuspid valve stenosis. Right Ventricular systolic pressure is measured at 19 mmHg. Pulmonary artery pressure normal. Pulmonic Valve: Pulmonic leaflets exhibit normal cuspal separation. No pulmonic valve regurgitation is evident. There is no pulmonic valve stenosis. Aorta: The aorta is normal. The aortic root size in 2D measures 2.5 cm. The aortic root exhibits normal size. The ascending aorta measures 2.2 cm. Ascending aorta is normal in size. Aorta Measurements AoRoot, 2D is 2.5 cm. IVC: The inferior vena cava is normal in size and course. Pericardium: No pericardial effusion. Exam Details Patient: LEW BARRAZA Study Date: 10/26/2018 Page 2 of 3 08:53 AM Procedure Ordered: Echo Procedure Status: Routine study Image Quality: Adequate Facility Location: Cardiac Echo 1 (No Signature Object) Patient: LEW BARRAZA Study Date: 10/26/2018 Page 3 of 3 08:53 AM [id number]
--- NOTE | 2018-10-26 14:16 | PDCARCONS ---
Cardiology Consult Reason for Consult: Syncope Chief Complaint: episodes of passing out Requesting Physician: Hospitalist team History of Present Illness: Patient is a 18 y/o female with unremarkable past medical/cardiovascular history , who presents to [facility] ER by EMS with reports of syncope (witnessed). Today, the patient is resting comfortably. Family was all at beside. Since October 17, the patient has noted three episodes of similar presentation. The first episode was reportedly the worst, and involved vomiting and fever. There were also reports of expressive aphasia and head ache noted. Dizziness was also noted in association with episode 1. ER visit ensued, and recommendations were for patient to be seen by Cardiology. The tentative diagnosis was "vasovagal syncope". The second episode was on October 23, and was also associated with a head ache. Patient did not recall any preceding events/symptoms, but did wake up on the floor. Mild confusion was noted with this episode, but no loss of bowel or bladder function noted. The patient was taken to the ER, and diagnosed at that time with "migraine", and outpatient follow up with neurology was recommended. On October 25, the patient was eating with her brother, and chest pains were noted. Dizziness and double vision were noted, and then the patient slowly fell to the floor. After two minutes of diminished consciousness , the patient awakened, and had confusion for several minutes. EMS transported the patient to the ER. MRI of the brain without cristobal pathology noted. Cardiac echocardiography with normal LVEF, no valve pathology, and normal chamber dimensions. No gross pathology has been noted on telemetry. Family was all present with the patient in the room today, which was both helpful, but I do sometimes wonder if history would be different without family present. 12 point review of systems was unremarkable History Information - Allergies/Home Medication List Allergies/Adverse Reactions: No Known Allergies Allergy (Verified 10/25/18 13:23) Home Medications: DULoxetine [Cymbalta 60 MG (*)] 60 mg PO DAILY 10/25/18 [Last Taken 10/24/18] Norethindrone [Norethindrone] 1 ea PO DAILY 10/25/18 [Last Taken 10/25/18] I have personally reviewed and updated: family history, medical history, social history, surgical history Past Medical History: - Past Medical History no pertinent PMH - Surgical History Reports: no pertinent surgical hx - Family History Positive for: non-pertinent - Social History Smoking Status: Never smoked Alcohol Use: Occasionally Drug Use: None Cardiac History - Cardiac History Timing/Duration: Weeks Severity: severe Severity Scale: 9 Location: substernal Activities at Onset: activity Modifying Factors: improves with: lying down, rest Associated Symptoms: diaphoresis, shortness of breath, syncope, weakness Physical Exam Physical Exam: Temp Pulse Resp BP Pulse Ox 36.7 C 63 18 106/81 H 100 10/26/18 12:16 10/26/18 12:16 10/26/18 12:16 10/26/18 12:16 10/26/18 12:16 Constitutional: no apparent distress, appears nourished, not in pain Eyes: PERRL, EOMI Ears, Nose, Mouth, Throat: moist mucous membranes, hearing normal, ears appear normal Cardiovascular: regular rate and rhythym, no murmur, rub, or gallop, pulses symmetric bilaterally, No JVD Peripheral Pulses: 2+: dorsalis-pedis (R), dorsalis-pedis (L) Respiratory: no respiratory distress, no rales or rhonchi, clear to auscultation Gastrointestinal: normoactive bowel sounds Skin: warm Musculoskeletal: full muscle strength Neurologic: AAOx3, sensation intact bilaterally, CN II-XII Intact Psychiatric: interacting appropriately, not anxious, not encephalopathic Lab and Imaging 10/25/18 13:35 10/25/18 13:35 WBC 8.88 10^3/uL (3.80-9.50) 10/25/18 13:35 RBC 4.57 10^6/uL (4.18-5.33) 10/25/18 13:35 Hgb 13.7 g/dL (12.6-16.3) 10/25/18 13:35 Hct 39.8 % (38.0-47.0) 10/25/18 13:35 MCV 87.1 fL (81.5-99.8) 10/25/18 13:35 MCH 30.0 pg (27.9-34.1) 10/25/18 13:35 MCHC 34.4 g/dL (32.4-36.7) 10/25/18 13:35 RDW 12.7 % (11.5-15.2) 10/25/18 13:35 Plt Count 299 10^3/uL (150-400) 10/25/18 13:35 MPV 9.4 fL (8.7-11.7) 10/25/18 13:35 Neut % (Auto) 68.6 % (39.3-74.2) 10/25/18 13:35 Lymph % (Auto) 23.8 % (15.0-45.0) 10/25/18 13:35 [place] % (Auto) 6.5 % (4.5-13.0) 10/25/18 13:35 Eos % (Auto) 0.7 % (0.6-7.6) 10/25/18 13:35 Baso % (Auto) 0.2 % (0.3-1.7) L 10/25/18 13:35 Nucleat RBC Rel Count 0.0 % (0.0-0.2) 10/25/18 13:35 Absolute Neuts (auto) 6.09 10^3/uL (1.70-6.50) 10/25/18 13:35 Absolute Lymphs (auto) 2.11 10^3/uL (1.00-3.00) 10/25/18 13:35 Absolute Monos (auto) 0.58 10^3/uL (0.30-0.80) 10/25/18 13:35 Absolute Eos (auto) 0.06 10^3/uL (0.03-0.40) 10/25/18 13:35 Absolute Basos (auto) 0.02 10^3/uL (0.02-0.10) 10/25/18 13:35 Absolute Nucleated RBC 0.00 10^3/uL (0-0.01) 10/25/18 13:35 Immature Gran % 0.2 % (0.0-1.1) 10/25/18 13:35 Immature Gran # 0.02 10^3/uL (0.00-0.10) 10/25/18 13:35 D-Dimer 0.27 ug/mLFEU (0.00-0.50) 10/25/18 13:33 Sodium 141 mEq/L (135-145) 10/25/18 13:35 Potassium 3.5 mEq/L (3.5-5.2) 10/25/18 13:35 Chloride 106 mEq/L (97-110) 10/25/18 13:35 Carbon Dioxide 24 mEq/l (22-31) 10/25/18 13:35 Anion Gap 11 mEq/L (6-14) 10/25/18 13:35 BUN 10 mg/dL (7-23) 10/25/18 13:35 Creatinine 0.8 mg/dL (0.6-1.0) 10/25/18 13:35 Estimated GFR > 60 10/25/18 13:35 Glucose 53 mg/dL (70-100) L 10/25/18 13:35 POC Glucose 83 mg/dL (70-100) 10/26/18 09:15 Hemoglobin A1c 5.2 % (4.0-6.0) 10/25/18 13:30 Estim Average Glucose 103 mg/dL (68-126) 10/25/18 13:30 Calcium 9.7 mg/dL (8.5-10.4) 10/25/18 13:35 Total Bilirubin 0.5 mg/dL (0.1-1.4) 10/25/18 13:00 Conjugated Bilirubin 0.3 mg/dL (0.0-0.5) 10/25/18 13:00 Unconjugated Bilirubin 0.2 mg/dL (0.0-1.1) 10/25/18 13:00 AST 20 IU/L (14-46) 10/25/18 13:00 ALT 32 IU/L (9-52) 10/25/18 13:00 Alkaline Phosphatase 50 IU/L (38-126) 10/25/18 13:00 POC Troponin I 0.00 ng/mL (0.00-0.08) 10/25/18 17:59 Troponin I < 0.012 ng/mL (0.000-0.034) 10/25/18 23:37 Total Protein 6.9 g/dL (6.3-8.2) 10/25/18 13:00 Albumin 4.4 g/dL (3.5-5.0) 10/25/18 13:00 TSH 1.220 uIU/mL (0.465-4.680) 10/25/18 13:00 Beta HCG, Qual NEGATIVE 10/25/18 11:45 Visualized and Interpreted EKG results: Yes EKG Interpretation: Positive for: normal sinsus rhythm Telemetry: Sinus rhythm Echocardiogram: Normal LVEF, normal wall motion, no valve pathology A/P Assessment: Patient is a 18 y/o female with unremarkable past medical/cardiovascular history with three bouts of syncope. Normal MRI of brain. Normal echocardiography. No pathology on telemetry or via ECG. TSH was normal. Pending EEG for assessment of seizure potential. Patient was scheduled to be seen by cardiology in the outpatient setting, but further events were noted, and she was ultimately hospitalized. Plan: (1) Arrangement for [employer] monitor (30 day) (2) Would maintain both neurology and cardiology outpatient visits (3) Patient and family were in agreement with these plans.
--- NOTE | 2018-10-26 14:25 | NEUROPROG ---
Assessment: Unfortunatley, there is no EEG techs available to do an inpatient EEG today. The debug technician tells me he will come in tomorrow morning to do the EEG. I can then read it and if no seizures are noted pt can discharge from a neurology perspective. Objective: Vital Signs Temp Pulse Resp BP Pulse Ox 36.7 C 63 18 106/81 H 100 10/26/18 12:16 10/26/18 12:16 10/26/18 12:16 10/26/18 12:16 10/26/18 12:16 10/25/18 10/26/18 10/27/18 05:59 05:59 05:59 Intake Total 300 Balance 300 Allergies/Adverse Reactions: No Known Allergies Allergy (Verified 10/25/18 13:23)
--- NOTE | 2018-10-26 15:00 | ASMTCMCOM ---
CM Note CM Note Notes: Patient admitted after syncopal episode and seizure like activity. Hx of migraines. Neurology has consulted; an EEG is pending (tech will come in tomorrow, Friday 10/27). Patient is a [employer] student, normally independent, and has family in area. She has an outpt Neuro appt scheduled for Sunday 10/29. No CM needs identified. Current CM Discharge plan: independent Date Signed: 10/26/2018 02:59 PM Electronically Signed By:Cheryl Teixeira RN
--- NOTE | 2018-10-26 16:15 | HOSPPROG ---
Hospitalist Progress Note Assessment/Plan: 18 yo F with PMH of migraine presenting with syncope # syncope: Cardiology consulted, likely not cardiac etiology. # migraines: with hx of atypical migraine in the past with sxs of near syncope thought to be due to that but now with increasing sxs as above, followed by a neurologist in [place], apparently has had brain MRI in the past but unclear how long ago. 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 Old records reviewed and summarized as above. Care plan reviewed with ER doctor, further hx obtained from patients family present at bedside. Objective: Vital Signs Temp Pulse Resp BP Pulse Ox 36.7 C 63 18 106/81 H 100 10/26/18 12:16 10/26/18 12:16 10/26/18 12:16 10/26/18 12:16 10/26/18 12:16 10/25/18 10/26/18 10/27/18 05:59 05:59 05:59 Intake Total 300 Balance 300 ICD10 Worksheet Patient Problems: Problems Problem Status Onset Syncope Acute
--- NOTE | 2018-10-27 07:32 | CPEKG ---
Test Reason : OPEN Blood Pressure : / mmHG Vent. Rate : 061 BPM Atrial Rate : 060 BPM P-R Int : 123 ms QRS Dur : 100 ms QT Int : 422 ms P-R-T Axes : -39 082 033 degrees QTc Int : 425 ms Sinus rhythm Borderline ST elevations inferior leads Confirmed by Jose Merino ([id number]) on 10/27/2018 7:31:32 AM Referred By: Danya Siu Confirmed By:Jose Merino
--- NOTE | 2018-10-27 10:55 | NEUROPROG ---
Assessment: [id number] - Neurology Consult: - CC: F/U for syncope - Narrative Summary: 10/26/18: Pt with PMHx of migraines (followed by neurologist in [place], [place] for this) reported since 10/17/18 she had had 3 passing out spells (last on leading to admission at [facility]). The last episode of passing out was reported to be associated with some convulsive symptoms. Her first episode was preceded by N/V and fever. She also reported a headache with some tremors speech issues. Prior passing out spells were felt to be vasovagal syncope. Pt reported on 10/23/18 she developed a headache that made her feel dizzy and weak and she then passed out. She does have a history of recurrent dizziness in the past with near syncope felt to be due to migraine. She did get frequent migraines so saw a neurologist who placed her on Cymbalta which has somewhat improved her migraine symptoms. Her neurologic exam on 10/26/18 was normal. I felt she was likely having migraines with associated vasovagal syncope. Treatment is getting the migraines under good control with her outpatient neurologist (she has a f/u visit with him on Monday). I will evaluate for any seizure focus with brain MRI wwo and EEG but if these tests are unremarkable then I would recommend her otpt neurologist attempt better migraine control. I agree with plan for cardiology to evaluate for cardiac causes of syncope. - HPI: F/U 10/27/18. Brain MRI normal. EEG appears generally normal but there were some nonspecific sharp waves so I will review the study with our epileptologist , Dr. Escoto, on Monday to ensure he is not concerned with any abnormality. I will call pt on Monday with results. No additional neuro recs at this time. Pt can discharge. - PMHx: asthma, migraines, childhood autoimmune condition - SHx: no tobacco FHx: DM2, CAD - ROS: Pt denied acute fever, total vision loss, active severe chest pain, respiratory failure, total body severe rash, total bowel/bladder incontinence, psychosis, active seizures, or active bleeding - Labs: 10/25/18- CBC wnl, CMP wnl, H1AC 5.2, TSH wnl - Rads: 10/26/18- Brain MRI wwo: normal - Assessment: 1. Migraines 2. Probable Vasovagal Syncope 3. EEG showing nonspecific sharp waves - Plan: - Agree with cardiology evaluation to exclude cardiac causes of syncope - Agree with Cymbalta for migraines - Seizure precautions and no driving until she sees her outpatient neurologist - I will review EEG with our epileptologist, Dr. Escoto, on Monday and call pt afterwards, at this time EEG appears generally normal - OK to discharge pt - F/U with outpatient neurologist on Monday (already scheduled) - 35 min spent with pt, majority of time spent counseling on condition and diagnostic plan Objective: Vital Signs Temp Pulse Resp BP Pulse Ox 36.8 C 76 20 87/64 L 94 10/27/18 07:12 10/27/18 07:12 10/27/18 07:12 10/27/18 07:12 10/27/18 07:12 10/26/18 10/27/18 10/28/18 05:59 05:59 05:59 Intake Total 300 750 Balance 300 750 Allergies/Adverse Reactions: No Known Allergies Allergy (Verified 10/25/18 13:23)
[2018-10-27] MEDS: NORETHINDRONE PO SCH (11:28)
[2018-10-27] MEDS: DULoxetine 60 MG CAP PO SCH (11:28)
[2018-10-27 11:37] VITALS: BP 102/73
--- NOTE | 2018-10-27 16:19 | PDDCSUM ---
Discharge Summary Discharge Summary: Discharge diagnosis Syncope Migraine Complex headache The patient was admitted after suffering multiple syncopal episodes. Neurology and Cardiology were consulted. An echocardiogram was obtained which was normal. Neurology recommended brain MRI which was obtained and unremarkable. Neurology then recommended a EEG. An EEG was obtained which showed no epileptic activity. Neurology felt that this likely represented a complex headache syndrome. Cardiology recommended a event monitor which was ordered on discharge. The patient was discharged to follow up with Neurology in told not to drive until further evaluation could be obtained. The patient suffered no further syncopal episodes while at the hospital and was discharged home to follow up with the primary care physician along with Neurology. Discharge disposition Home independent Follow-up Neurology Cardiology I spent over 30 min on the discharge of this patient
--- NOTE | 2018-10-29 13:21 | CPEEG ---
[f rep st] ELECTROENCEPHALOGRAM INPATIENT EEG DATES OF STUDY: 10/27 DATE OF INTERPRETATION: 10/29/18 INTERPRETATION: Normal EEG during wakefulness and sleep. There were no potentially epileptogenic ab normalities present on the recording. REPORT: This EEG contains 10 Hz alpha activity to the posterior head regions. There was no abnormal activation at rest. The patient became drowsy and fell asleep during the study. There was no abnor mal activation during drowsiness, sleep, or during the times of arousal. /[id number]/MODL
== END 2018-10-27 13:33 | disposition home or self-care (01) ==
LOC: EDUNIT# → EDBD → F2W 18:31
PROVIDERS: ADMIT Internal Medicine; ATTEND Internal Medicine
DX: R55 Syncope and collapse (principal); G43.909 Migraine, unspecified, not intractable, without status migrainosus; E16.2 Hypoglycemia, unspecified
CPT/HCPCS: 70553; 93005; 93306; 96361; 96374; 99285; G0378; 84484-ER; A9585

== ENCOUNTER → 2018-10-31 | Outpatient (CLI) | payer OTHER ==
--- NOTE | 2018-10-31 16:54 | CPEEG ---
[f rep st] ELECTROENCEPHALOGRAM DATE OF STUDY: 10/31/2018 INTERPRETATION: Normal EEG during wakefulness and sleep. There were no potentially epileptogenic ab normalities present in the awake or sleep recordings. REPORT: This EEG contains 10 Hz alpha activity over the posterior head regions. The background acti vity was normal and symmetric. There was no abnormal activation at rest or during photic stimulation or hyperventilation. The patient became drowsy and fell asleep during the study. There was no abno rmal activation during drowsiness, sleep, or during times of arousal. Copy requested to: dr Flynn Julien /[id number]/MODL
== END ==
LOC: FCPNEURO 13:49
PROVIDERS: ATTEND Psychiatry & Neurology Clinical Neurophysiology
DX: R55 Syncope and collapse (principal); R40.4 Transient alteration of awareness; G43.009 Migraine without aura, not intractable, without status migrainosus